=== PATIENT | male | born 1980 | race Hispanic/Latino ===

== ENCOUNTER 2021-10-29 14:03 | Emergency (ER) | payer OTHER, BC, SELFPAY ==
[2021-10-29 14:04] VITALS: BP 146/97; PULSE 90; RESP 18; TEMP 36.6; O2SAT 99; BMI 31.6
--- NOTE | 2021-10-29 15:27 | ED.VIS.LOWEX ---
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 The knife slipped and it poked into his wrist. History is obtained through palliative care coordinator. By review of systems he does have decreased sensation of that hand. No decreased range of motion. No prior injury. He is right-hand dominant. PFSH PFSH Medical History no medical history Allergy/AdvReac Type Severity Reaction Status Date / Time No Known Allergies Allergy Verified 10/29/21 14:10 Family History no significant family his Surgical History no surgical history Social History Smoking Status: Never smoker ROS ROS ED Constitutional Constitutional ED: Denies fever(s) Gastrointestinal Gastrointestinal: Denies nausea or vomiting Musculoskeletal Musculoskeletal: Reports other Details: Left wrist discomfort. Integumentary Reports other Details: Left wrist laceration Neurologic Neurologic: Reports paresthesias; Denies weakness Hematologic/Lymphatic Hematologic/Lymphatic: Reports other Details: Patient states he had minimal bleeding at the time and has not had any significant bleeding since. ; Denies easy bleeding or easy bruising EXAM Physical Exam Const Vital Signs: 10/29/21 14:04 Temperature 97.8 F Temperature Source Temporal Pulse Rate 90 Respiratory Rate 18 Blood Pressure 146/97 H Blood Pressure Mean 113 Pulse Ox 99 Oxygen Delivery Method Room Air Positive well nourished and well developed General Appearance ED: well developed and NAD HEENT Reports moist mucous membranes normocephalic Neck full ROM Chest Wall inspection of chest normal Resp normal respiratory effort and clear to auscultation bilaterally Cardio regular rate and regular rhythm GI non-tender Palpation: soft Extremity Extremity Narrative: Patient has about a 12 mm laceration on the volar surface of left wrist more at the proximal crease just lateral to palmaris longus region. You range of motion is excellent. The superficial and profundus tendon seem to be intact. Thumb range of motion is normal. However, he has clearly decreased sensation in the distribution of the median nerve. Neuro Neuro Narrative: Median nerve loss left hand Sensorium / Orientation: alert Sensory Exam: sensory level loss detected Motor Exam: Negative for strength abnormal Skin Skin Narrative: Laceration as above. MDM MDM MDM Narrative Medical decision making narrative: I have called Miguel Navarro to discuss with hand surgeon. We contacted the transfer center. They were paging hand surgeon. They were having trouble getting hold of them. They then contact the cell phone. He is tied up in the operating room for hours. He does not think that he is going to be able to see this person appropriate time. He recommended referral to another facility I contacted [facility]. I spoke with Dr. Mckeon who will accept him. They will see him in the emergency department. I talk with the patient and his ride and system administrator. They do not want an ambulance up there. They want to drive him up there. I stated that they need to go to [facility] which is also [facility]. We are getting them the address. Images have been placed on the shared system. Dressing will be applied. I explained that it is important that this thing is seen tonight. He does not want to delay going up there or choose not to or go on a different day. It is very important that he goes now. I did offer ambulance ride up. Radiography Diagnostic Testing: Clinical Impression(s) from Imaging Studies Wrist X-Ray 10/29/21 15:37 IMPRESSION: Normal x-ray examination of the wrist. 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 Primary Care Provider: NOT,DEFINED Referrals: NOT,DEFINED [Primary Care Provider] - Activity Restrictions/Additional Instructions: Go to directly to [facility] emergency department. I spoke with Dr. Mckeon. Disposition Disposition: Acute Care Hospital Discharge Location: [facility]
--- NOTE | 2021-10-29 15:37 | RAD_ITS ---
STUDY: X-RAY - LEFT WRIST REASON FOR EXAM: Male, 41 years old. Laceration. TECHNIQUE: 3 view(s) of the wrist were obtained. COMPARISON: None. FINDINGS: Normal visualized distal radius and ulna. Normal radiocarpal articulation. Normal distal radioulnar articulation. Normal carpal bones. Normal carpal articulations. Normal carpometacarpal articulation of the thumb. Normal second through fifth carpometacarpal articulations. Normal visualized metacarpal bones. The soft tissue structures are unremarkable. RAD/Wrist min 3 Views IMPRESSION: Normal x-ray examination of the wrist. Electronically Signed: Dar Carr MD at 15:48 EDT ,
--- NOTE | 2021-10-29 16:25 | NURSING ---
when cleansing lacerated area, the area was noted to be well approximated and open. dr plaza notifed at this time.
--- NOTE | 2021-10-29 17:58 | NURSING ---
report called to Carolina, chargemaster analyst nurse at [facility].
[2021-10-29 18:01] VITALS: BP 138/79; PULSE 99; RESP 18; O2SAT 97
== END 2021-10-29 18:06 | disposition short-term general hospital (02) ==
PROVIDERS: Emergency Provider Emergency Medicine; Visit Provider Emergency Medicine
DX: S61.512A Laceration without foreign body of left wrist, initial encounter (principal); S64.12XA Injury of median nerve at wrist and hand level of left arm, initial encounter; W26.0XXA Contact with knife, initial encounter; X58.XXXA Exposure to other specified factors, initial encounter; Y99.0 Civilian activity done for income or pay
CPT/HCPCS: 73110; 99285